=== PATIENT | female | born 1995 | race African-American/Black ===

== ENCOUNTER 2017-03-24 19:23 | Emergency (ER) | payer OTHER ==
[~2017-03-24] VITALS: Ht 180.3 cm; Wt 157.4 kg
[~2017-03-24 19:23] MED LIST: ALBU8.5H6 INH; DEXT20TA2 PO; TRAM50TA PO
[2017-03-24 20:28] VITALS: BP 156/101
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
[2017-03-24] MEDS ORDERED: CYCL10TA2 PO (22:22)
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
== END 2017-03-24 22:30 | disposition home or self-care (01) ==
LOC: ER 19:23
DX: S13.4XXA Sprain of ligaments of cervical spine, initial encounter (principal); M25.562 Pain in left knee; M54.5 Low back pain; R51 Headache; M54.6 Pain in thoracic spine; M41.9 Scoliosis, unspecified; J45.909 Unspecified asthma, uncomplicated; V49.50XA Passenger injured in collision with unspecified motor vehicles in traffic accident, initial encounter; Y93.89 Activity, other specified; Y92.410 Unspecified street and highway as the place of occurrence of the external cause; Y99.8 Other external cause status
CPT/HCPCS: 70486; 72100; 72125; 73564; 99284-25

== ENCOUNTER 2017-09-05 18:29 | Emergency (ER) | payer OTHER ==
[~2017-09-05] VITALS: Ht 180.3 cm; Wt 145.1 kg
[~2017-09-05 18:29] MED LIST changes: +CYCL10TA2 PO
[2017-09-05] MEDS ORDERED: IV NORMAL SALINE 1000ML BAG 1,000 ML IV SCH (19:11)
[2017-09-05] MEDS ORDERED: ONDANSETRON PF 4 MG/2 ML VIAL. IV ONE (19:15)
[2017-09-05] MEDS ORDERED: FAMOTIDINE 20 MG/2 ML VIAL IVP ONE (19:15)
[2017-09-05 19:25] LABS: BILIRUBIN,URINE NEGATIVE (NEG); GLUCOSE,URINE NEGATIVE (NEG); NITRITE,URINE NEGATIVE (NEG); PROTEIN,URINE NEGATIVE (NEG-TRACE)
[2017-09-05 19:33] LABS: BACTERIA,URINE MANY /HPF (0-FEW); RBC,URINE 0 /HPF (0-2); SQUAMOUS EPITHELIAL CELL,UR MANY /LPF; WBC,URINE OCC /HPF (0-4)
--- NOTE | 2017-09-05 19:35 | PHYS DOC ---
Past Medical History Past Medical History: Asthma, Other Additional Past Medical Histor: " ocular nerve swelling they say from pseudotumor cerebri" scoliosis Past Surgical History: No Surgical History Alcohol Use: Rarely Drug Use: None Adult General Chief Complaint Chief Complaint: NAUSEA/VOMITING/DIARRHA HPI HPI Patient is a 22 year old female who presents with complaint of nausea, vomiting , and abdominal pain. Patient states her symptoms have been present over the past 2 days. Patient states that she has had increasing fatigue and nausea with her symptoms. Patient also noted yesterday she had loose stools. Patient currently has achy abdominal pain that is generalized in nature. Patient states her last missed her period was 2 weeks ago. Patient has not taken any medications for her symptoms at this time. Denies any known sick contacts or exposure to spoiled food. Review of Systems Review of Systems Constitutional: Denies fever or chills [] Eyes: Denies change in visual acuity, redness, or eye pain [] HENT: Denies nasal congestion or sore throat [] Respiratory: Denies cough or shortness of breath [] Cardiovascular: Denies chest pain or edema[] GI: Abdominal pain, nausea, vomiting[] : Denies dysuria or hematuria [] Musculoskeletal: Denies back pain or joint pain [] Integument: Denies rash or skin lesions [] Neurologic: Denies headache, focal weakness or sensory changes [] Endocrine: Denies polyuria or polydipsia [] Current Medications Current Medications Current Medications Medications (Trade) Dose Ordered Sig/Frantz Start Time Stop Time Status Last Admin Dose Admin Famotidine (Pepcid) 20 mg 1X ONCE 09/05/17 19:15 09/05/17 19:16 DC 09/05/17 19:50 20 MG Ondansetron HCl (Zofran) 4 mg 1X ONCE 09/05/17 19:15 09/05/17 19:16 DC 09/05/17 19:49 4 MG Sodium Chloride 1,000 ml @ 1,000 mls/hr Q1H 09/05/17 19:11 09/05/17 20:10 DC 09/05/17 19:49 1,000 MLS/HR Allergies Allergies Allergies Coded Allergies Type Severity Reaction Last Updated Verified No Known Drug Allergies 05/30/14 No Physical Exam Physical Exam Constitutional: Alert, obese, afebrile, appears in [id number] discomfort. [] HENT: Normocephalic, atraumatic, bilateral external ears normal, oropharynx moist, no oral exudates, nose normal. [] Eyes: PERRLA, EOMI, conjunctiva normal, no discharge. [] Neck: Normal range of motion, no tenderness, supple, no stridor. [] Cardiovascular:Heart rate regular rhythm, no murmur [] Lungs & Thorax: Bilateral breath sounds clear to auscultation [] Abdomen: Bowel sounds normal, soft, no tenderness, no masses, no pulsatile masses. [] Skin: Warm, dry, no erythema, no rash. [] Back: No tenderness, no CVA tenderness. [] Extremities: No tenderness, no cyanosis, no clubbing, ROM intact, no edema. [] Neurologic: Alert and oriented X 3, normal motor function, normal sensory function, no focal deficits noted. [] Current Patient Data Vital Signs Vital Signs Date Time Temp Pulse Resp B/P (MAP) Pulse Ox O2 Delivery O2 Flow Rate FiO2 09/05/17 20:38 62 18 143/92 (109) 98 Room Air 09/05/17 19:05 98.4 98.4 Lab Values Laboratory Tests Test 09/05/17 19:16 09/05/17 19:19 09/05/17 19:52 Urine Collection Type Unknown Urine Color Yellow Urine Clarity Cloudy Urine pH 6.0 Urine Specific [place] 1.025 Urine Protein Negative mg/dL (NEG-TRACE) Urine Glucose (UA) Negative mg/dL (NEG) Urine Ketones (Stick) Trace mg/dL (NEG) Urine Blood Negative (NEG) Urine Nitrite Negative (NEG) Urine Bilirubin Negative (NEG) Urine Urobilinogen Dipstick 1.0 mg/dL (0.2 mg/dL) Urine Leukocyte Esterase Small (NEG) Urine RBC 0 /HPF (0-2) Urine WBC Occ /HPF (0-4) Urine Squamous Epithelial Cells Many /LPF Urine Bacteria Many /HPF (0-FEW) Urine Mucus Marked /LPF POC Urine HCG, Qualitative Hcg negative (Negative) White Blood Count 7.0 x10^3/uL (4.0-11.0) Red Blood Count 4.94 x10^6/uL (3.50-5.40) Hemoglobin 11.1 g/dL (12.0-15.5) L Hematocrit 34.8 % (36.0-47.0) L Mean Corpuscular Volume 71 fL (79-100) L Mean Corpuscular Hemoglobin 22 pg (25-35) L Mean Corpuscular Hemoglobin Concent 32 g/dL (31-37) Red Cell Distribution Width 16.3 % (11.5-14.5) H Platelet Count 386 x10^3/uL (140-400) Neutrophils (%) (Auto) 54 % (31-73) Lymphocytes (%) (Auto) 35 % (24-48) Monocytes (%) (Auto) 8 % (0-9) Eosinophils (%) (Auto) 3 % (0-3) Basophils (%) (Auto) 1 % (0-3) Neutrophils # (Auto) 3.8 x10^3uL (1.8-7.7) Lymphocytes # (Auto) 2.5 x10^3/uL (1.0-4.8) Monocytes # (Auto) 0.6 x10^3/uL (0.0-1.1) Eosinophils # (Auto) 0.2 x10^3/uL (0.0-0.7) Basophils # (Auto) 0.1 x10^3/uL (0.0-0.2) Platelet Estimate Adequate (ADEQUATE) Hypochromasia Mod Microcytosis Marked Sodium Level 139 mmol/L (136-145) Potassium Level 3.8 mmol/L (3.5-5.1) Chloride Level 102 mmol/L (98-107) Carbon Dioxide Level 28 mmol/L (21-32) Anion Gap 9 (6-14) Blood Urea Nitrogen 11 mg/dL (7-20) Creatinine 0.7 mg/dL (0.6-1.0) Estimated GFR (Cockcroft-Gault) 126.6 BUN/Creatinine Ratio 16 (6-20) Glucose Level 93 mg/dL (70-99) Calcium Level 9.2 mg/dL (8.5-10.1) Total Bilirubin 0.2 mg/dL (0.2-1.0) Aspartate Amino Transferase (AST) 15 U/L (15-37) Alanine Aminotransferase (ALT) 11 U/L (14-59) L Alkaline Phosphatase 123 U/L (46-116) H Total Protein 8.2 g/dL (6.4-8.2) Albumin 3.2 g/dL (3.4-5.0) L Albumin/Globulin Ratio 0.6 (1.0-1.7) L Lipase 72 U/L (73-393) L Laboratory Tests 09/05/17 19:52 Laboratory Tests 09/05/17 19:52 EKG EKG Not performed[] Radiology/Procedures Radiology/Procedures Not performed[] Course & Med Decision Making Course & Med Decision Making Pertinent Labs and Imaging studies reviewed. (See chart for details) Patient was given IV fluids, Pepcid, and Zofran in the emergency department. On reevaluation, patient states her symptoms have improved. Patient's lab work is unremarkable and lab values appear stable to previous lab draws. The patient's symptoms are likely due to an acute viral illness of the GI tract. Patient prescribed Zofran and Pepcid to continue on outpatient treatment and recommended follow-up in 2-3 days for reevaluation. Advised return to emergency department for any worsening symptoms. Patient voiced understanding and in agreement with treatment plan.[] Dragon Disclaimer Dragon Disclaimer This electronic medical record was generated, in whole or in part, using a voice recognition dictation system. Departure Departure Impression: Primary Impression: Nausea & vomiting Additional Impression: Abdominal pain Disposition: 01 HOME, SELF-CARE Condition: IMPROVED Referrals: NO PCP (PCP) Patient Instructions: Abdominal Pain (Nonspecific), Nausea and Vomiting Additional Instructions: Follow-up with your primary doctor in 2-3 days for reevaluation. Return to the emergency department for any worsening symptoms. Scripts Ondansetron (ZOFRAN ODT) 4 Mg Tab.rapdis 1 TAB SL Q8HRS Y for NAUSEA/VOMITING, #15 TAB Prov: YASMANY WELLINGTON MD 09/05/17 Famotidine (PEPCID) 20 Mg Tablet 20 MG PO BID, #30 TAB Prov: YASMANY WELLINGTON MD 09/05/17 Problem Qualifiers Primary Impression: Nausea & vomiting Vomiting type: unspecified Vomiting Intractability: non-intractable Qualified Codes: R11.2 - Nausea with vomiting, unspecified Additional Impression: Abdominal pain Abdominal location: generalized Qualified Codes: R10.84 - Generalized abdominal pain YASMANY WELLINGTON MD Sep 05, 2017 19:35
[2017-09-05 20:03] LABS: BASO # 0.1 x10^3/uL (0.0-0.2); BASO % 1 % (0-3); EOS % 3 % (0-3); HEMATOCRIT 34.8 % (36.0-47.0); HEMOGLOBIN 11.1 g/dL (12.0-15.5); LYMPH # 2.5 x10^3/uL (1.0-4.8); LYMPH % 35 % (24-48); MEAN CORPUSCULAR HEMOGLOBIN 22 pg (25-35); MEAN CORPUSCULAR HGB CONC 32 g/dL (31-37); MEAN CORPUSCULAR VOLUME 71 fL (79-100); MONO % 8 % (0-9); NEUT % 54 % (31-73); PLATELET COUNT 386 x10^3/uL (140-400); RED BLOOD COUNT 4.94 x10^6/uL (3.50-5.40); RED CELL DISTRIBUTION WIDTH 16.3 % (11.5-14.5)
[2017-09-05 20:17] LABS: CALCIUM 9.2 mg/dL (8.5-10.1); CREATININE 0.7 mg/dL (0.6-1.0); GFR 126.6; POTASSIUM 3.8 mmol/L (3.5-5.1)
[2017-09-05 20:22] LABS: HYPOCHROMIA MOD; MICROCYTOSIS MARKED; PLT ESTIMATE ADEQUATE (ADEQUATE)
[2017-09-05 20:24] LABS: ALBUMIN 3.2 g/dL (3.4-5.0); ALBUMIN/GLOBULIN RATIO 0.6 (1.0-1.7); TOTAL BILIRUBIN 0.2 mg/dL (0.2-1.0); TOTAL PROTEIN 8.2 g/dL (6.4-8.2)
[2017-09-05 20:38] VITALS: BP 143/92
[2017-09-05] MEDS ORDERED: ONDA4TAB10 SL (21:13)
[2017-09-05] MEDS ORDERED: FAMO-63 PO (21:13)
== END 2017-09-05 21:39 | disposition home or self-care (01) ==
LOC: ER 18:29
DX: R11.2 Nausea with vomiting, unspecified (principal); R10.9 Unspecified abdominal pain; J45.909 Unspecified asthma, uncomplicated; E66.9 Obesity, unspecified; Z68.41 Body mass index [BMI] 40.0-44.9, adult
CPT/HCPCS: 36415; 80053; 81001; 81025; 83690; 85025; 87086; 96361; 96374; 96375; 99284; J2405; J7030; S0028